=== PATIENT | female | born 1995 | race Hispanic/Latino ===

== ENCOUNTER 2025-01-17 06:07 | Day surgery (SDC) | payer MEDICAID ==
[2025-01-17] VITALS (11 sets, daily range): BP systolic 99–128; BP diastolic 57–74; PULSE 82–92; RESP 14–18; TEMP 97.2–99.3
[~2025-01-17] VITALS: Ht 154.9 cm; Wt 143.8 kg
[2025-01-17] MEDS: 0.9%NACL 1000ML 1,000 ML IV ONE (07:09)
== END 2025-01-17 11:56 | disposition home or self-care (01) ==
LOC: ENDO 06:07 → DAH 06:07 → ENDO 11:56
PROVIDERS: ATTEND Surgery
DX: K29.50 Unspecified chronic gastritis without bleeding (principal); K31.89 Other diseases of stomach and duodenum; K22.89 Other specified disease of esophagus; E66.01 Morbid (severe) obesity due to excess calories; I10 Essential (primary) hypertension; E11.9 Type 2 diabetes mellitus without complications; Z68.43 Body mass index [BMI] 50.0-59.9, adult; K76.0 Fatty (change of) liver, not elsewhere classified; Z79.899 Other long term (current) drug therapy
CPT/HCPCS: 81025; 43239; J7030; J2704; A4620; A4215 ×2; A4223; A4222; A4221; A4663; A4606; J3490